=== PATIENT | female | born 1955 | race Caucasian/White ===

== ENCOUNTER 2019-09-29 11:19 | Emergency (ER) | payer OTHER ==
--- NOTE | 2019-09-29 12:00 | ER Document Report ---
ED Medical Screen (RME) - General Chief Complaint: Pain With Urination Stated Complaint: URINARY ISSUE Time Seen by Provider: 09/29/19 11:48 Mode of Arrival: Ambulatory Information source: Patient Notes: 64-year-old female patient presented emergency department multiple complaints today. Patient reports she thought she had a urinary tract infection so she we did a telehealth visit and had a prescription for Macrobid called in for her. She states she took 1 dose and started having severe back pain and low abdominal cramping. She states she is on Tikosyn and Eliquis. She is worried that there is an interaction. No obvious distress noted. I have greeted and performed a rapid initial assessment of this patient. A comprehensive ED assessment and evaluation of the patient, analysis of test results and completion of the medical decision making process will be conducted by additional ED providers. I have specifically instructed the patient or family members with the patient to immediately return to any nursing staff should anything change in the patient's condition or with their chief complaint. - Related Data Allergies/Adverse Reactions: cortisone Allergy (Verified 09/29/19 11:48) vaginal bleeding iodine Allergy (Verified 09/29/19 11:48) Hives Latex, Natural Rubber Allergy (Verified 09/29/19 11:48) Hives lidocaine Allergy (Verified 09/29/19 11:48) Light headed Home Medications: eliquis 5bid, ticosin 500bid and many vitamins... Past Medical History - Social History Chew tobacco use (# tins/day): No Frequency of alcohol use: None Drug Abuse: None Physical Exam - Vital signs Vitals: Temp Pulse Resp BP Pulse Ox 98.6 F 68 16 142/78 H 97 09/29/19 11:37 09/29/19 11:37 09/29/19 11:37 09/29/19 11:37 09/29/19 11:37 Course - Vital Signs Vital signs: Temp Pulse Resp BP Pulse Ox 98.6 F 68 16 142/78 H 97 09/29/19 11:37 09/29/19 11:37 09/29/19 11:37 09/29/19 11:37 09/29/19 11:37
[2019-09-29 12:41] LABS: APPEARANCE,URINE CLEAR; BILIRUBIN,URINE NEGATIVE (NEGATIVE); COLOR,URINE STRAW; GLUCOSE, URINE NEGATIVE (NEGATIVE); KETONES,URINE NEGATIVE (NEGATIVE); LEUKOCYTE ESTERASE,URINE NEGATIVE (NEGATIVE); NITRITE,URINE NEGATIVE (NEGATIVE); PROTEIN,URINE NEGATIVE (NEGATIVE); URINE SPECIFIC GRAVITY 1.004; UROBILINOGEN,URINE NEGATIVE mg/dL (<2.0)
[2019-09-29 12:44] LABS: ABSOLUTE EOSINOPHILS # (AUTO) 0.1 10^3/uL (0.0-0.6); ABSOLUTE LYMPHOCYTES (AUTO) 1.1 10^3/uL (0.5-4.7); ABSOLUTE MONOCYTES (AUTO) 0.4 10^3/uL (0.1-1.4); ABSOLUTE NEUT (AUTO) 3.5 10^3/uL (1.7-8.2); BASOPHILS % (AUTO) 0.3 % (0-2); EOSINOPHILS % (AUTO) 1.7 % (0-6); HEMATOCRIT 40.7 % (36.0-47.0); HEMOGLOBIN 13.7 g/dL (12.0-15.5); INTERNATIONAL RATION (INR) 1.05; LYMPHOCYTES % (AUTO) 21.9 % (13-45); MEAN CORPUSCULAR HEMOGLOBIN 29.1 pg (27.0-33.4); MEAN CORPUSCULAR HGB CONC 33.6 g/dL (32.0-36.0); MEAN CORPUSCULAR VOLUME 87 fl (80-97); MONOCYTES % (AUTO) 7.3 % (3-13); PLATELET COUNT 177 10^3/uL (150-450); PROTHROMBIN TIME 13.9 SEC (11.4-15.4); RED CELL DISTRIBUTION WIDTH 14.1 % (11.5-14.0); SEGMENTED NEUTROPHILS % (AUTO) 68.8 % (42-78); TOTAL CELLS COUNTED % (AUTO) 100 %; WHITE BLOOD COUNT 5.1 10^3/uL (4.0-10.5)
[2019-09-29 12:45] LABS: PARTIAL THROMBOPLASTIN TIME 32.4 SEC (23.5-35.8)
[2019-09-29 13:00] LABS: ALBUMIN 4.6 g/dL (3.5-5.0); ALKALINE PHOSPHATASE 57 U/L (38-126); ANION GAP 6 (5-19); ASPARTATE AMINO TRANSFERASE 32 U/L (14-36); BILIRUBIN,TOTAL 0.6 mg/dL (0.2-1.3); BLOOD UREA NITROGEN 13 mg/dL (7-20); CALCIUM 9.7 mg/dL (8.4-10.2); CARBON DIOXIDE 28 mmol/L (22-30); CHLORIDE 104 mmol/L (98-107); GLUCOSE 119 mg/dL (75-110); TOTAL PROTEIN 7.4 g/dL (6.3-8.2)
--- NOTE | 2019-09-29 15:52 | ER Document Report ---
ED General - General Chief Complaint: Pain With Urination Stated Complaint: URINARY ISSUE Time Seen by Provider: 09/29/19 11:48 Mode of Arrival: Ambulatory - [facility] Notes: 64-year-old female presents with dysuria. Patient states that she has had burning with urination for a few days, she states that she took an at home UTI test kit which was positive for leuk esterase and nitrites. She had a telehealth visit in which she was prescribed Macrobid. She states that she took Macrobid last night for the first time. About 1 hour later, she developed abdominal cramping, sharp lower back pain and nausea. She has not taken any doses since. She additionally had an episode where she felt her heart pounding and some dizziness, this has now since resolved. She complains mostly of sharp right flank pain and continues to have dysuria. She denies fever. She reports concerned that she is having a drug interaction giving that she is on Tikosyn and Eliquis for A. fib. - Related Data Allergies/Adverse Reactions: cortisone Allergy (Verified 09/29/19 11:48) vaginal bleeding iodine Allergy (Verified 09/29/19 11:48) Hives Latex, Natural Rubber Allergy (Verified 09/29/19 11:48) Hives lidocaine Allergy (Verified 09/29/19 11:48) Light headed Home Medications: eliquis 5bid, ticosin 500bid and many vitamins... Past Medical History - General Information source: Patient - Social History Smoking Status: Never Smoker Chew tobacco use (# tins/day): No Frequency of alcohol use: None Drug Abuse: None Family History: Reviewed & Not Pertinent Patient has homicidal ideation: No Review of Systems - Review of Systems Constitutional: denies: Fever EENT: No symptoms reported Cardiovascular: denies: Chest pain Respiratory: denies: Short of breath Gastrointestinal: Nausea Genitourinary: Burning, Dysuria Female Genitourinary: No symptoms reported Musculoskeletal: No symptoms reported Skin: No symptoms reported Hematologic/Lymphatic: No symptoms reported Physical Exam - Vital signs Vitals: Temp Pulse Resp BP Pulse Ox 98.6 F 68 16 142/78 H 97 09/29/19 11:37 09/29/19 11:37 09/29/19 11:37 09/29/19 11:37 09/29/19 11:37 - General General appearance: Appears well In distress: None - HEENT Head: Normocephalic, Atraumatic Extraocular movements intact: Yes Pupils: PERRL - Respiratory Breath sounds: Normal - Cardiovascular Rhythm: Regular Heart sounds: Normal auscultation Normal capillary refill: Yes - Abdominal Inspection: Obese Distension: No distension Bowel sounds: Normal Tenderness: Nontender - Back Back: Nontender - Extremities General lower extremity: No: Edema - Neurological Neuro grossly intact: Yes Cognition: Normal Orientation: AAOx4 - Psychological Associated symptoms: Normal affect - Skin Skin Temperature: Warm Course - Re-evaluation Re-evalutation: 64-year-old female here for dysuria in setting of positive at home test. She was prescribed Macrobid, took 1 dose and began to experience abdominal cramping. Possible she is having a side effect to the medication. She is well-appearing, abdomen soft and nontender. Her symptoms do suggest UTI, urine sample was obtained through triage which is not overtly suspicious for infection, the patient does mention that this was a sample taken at the end of her stream. Is been sent for culture. I reviewed her at home test which was positive for leuk esterase and nitrites. Given the pain that she was reporting, possible she could have passed a stone, we will send her for CT abdomen to assess. Have a low suspicion for intra-abdominal pathology. 09/29/19 17:28 CT abdomen has resulted, it is negative for stone or other intra-abdominal pathology 09/29/19 17:48 Patient updated on results. We will prescribe a course of Keflex. I have ran it through [facility] and it does not appear to interact with her at medication. Return cautions given, stable at time of discharge. - Vital Signs Vital signs: Temp Pulse Resp BP Pulse Ox 98.1 F 66 16 123/84 100 09/29/19 18:20 09/29/19 18:20 09/29/19 18:20 09/29/19 18:20 09/29/19 18:20 - Laboratory Result Diagrams: 09/29/19 12:08 09/29/19 12:08 Laboratory results interpreted by me: 09/29/19 09/29/19 12:08 12:08 RDW 14.1 H Glucose 119 H ALT 39 H Discharge - Discharge Clinical Impression: Dysuria Disposition: HOME, SELF-CARE Additional Instructions: Please begin new course of antibiotics, I have checked it with the database and does not appear to have an interaction with your medications. Please follow-up with your primary care doctor this week. Return to the emergency department for any worsening or concerning symptoms. Prescriptions: Cephalexin Monohydrate [Keflex 500 mg Capsule] 500 mg PO BID 5 Days #10 capsule
--- NOTE | 2019-09-29 17:19 | RADIOLOGY REPORT (SQ) ---
EXAM DESCRIPTION: CT ABD/PELVIS NO ORAL OR IV IMAGES COMPLETED DATE/TIME: 09/29/2019 4:59 pm REASON FOR STUDY: right flank pain, dysuria, eval stone COMPARISON: None. TECHNIQUE: CT scan of the abdomen and pelvis performed without intravenous or oral contrast. Images reviewed with lung, soft tissue, and bone windows. Reconstructed coronal and sagittal MPR images revi ewed. All images stored on PACS. All CT scanners at this facility use dose modulation, iterative reconstruction, and/or weight based d osing when appropriate to reduce radiation dose to as low as reasonably achievable (ALARA). [facility]: Dose Right [facility]: CareDose [facility]: Dose Right [facility]: Teradose 4D [facility]: [employer] RADIATION DOSE: CT Rad equipment meets quality standard of care and radiation dose reduction techniq ues were employed. CTDIvol: 13.5 mGy. DLP: 686 mGy-cm.mGy. LIMITATIONS: None. FINDINGS: LOWER CHEST: Mild scarring versus atelectasis at the lung bases bilaterally. Mild pectus excavatum with a Virid[place] index of 2.9. NON-CONTRASTED LIVER, SPLEEN, ADRENALS: Evaluation limited by lack of IV contrast. No identified sign ificant masses. PANCREAS: No masses. No peripancreatic inflammatory changes. GALLBLADDER: No calcified stones. No inflammatory changes to suggest cholecystitis. RIGHT KIDNEY AND URETER: No cysts identified. No solid masses. No calcified stones. No hydronephrosis or hydroureter. LEFT KIDNEY AND URETER: No cysts identified. No solid masses. No calcified stones. No hydronephrosis or hydroureter. AORTA AND RETROPERITONEUM: No aneurysm. No retroperitoneal masses or adenopathy. BOWEL AND PERITONEAL CAVITY: No obvious masses or inflammatory changes. No free fluid. APPENDIX: Normal. PELVIS, BLADDER, AND ABDOMINAL WALL:No abnormal masses. No free fluid. Unremarkable bladder. BONES: No acute findings. Vertebral hemangioma is noted in the T12 vertebral body. OTHER: No other significant finding. IMPRESSION: No urolithiasis or evidence of obstructive uropathy. TECHNICAL DOCUMENTATION: JOB ID: [id number] [id number] Quality ID # [id number]: Final reports with documentation of one or more dose reduction techniques (e.g., Au tomated exposure control, adjustment of the mA and/or kV according to patient size, use of iterative reconstruction technique) 2010 [employer]- All Rights Reserved Reading location - IP/workstation name: [email or web address]
[2019-09-29 19:40] VITALS: BP 123/84
== END 2019-09-29 18:20 | disposition home or self-care (01) ==
LOC: ER 11:19
DX: R30.0 Dysuria (principal); R11.0 Nausea; R10.9 Unspecified abdominal pain; M54.5 Low back pain; I48.91 Unspecified atrial fibrillation; Z79.01 Long term (current) use of anticoagulants; Z79.899 Other long term (current) drug therapy
CPT/HCPCS: 36415; 74176; 80053; 81001; 85025; 85610; 85730; 87086; 99284